=== PATIENT | female | born 1965 | race Caucasian/White ===

== ENCOUNTER 2017-12-17 11:37 | Emergency (ER) | payer BC ==
[2017-12-17] MEDS ORDERED: METOCLOPRAMIDE 10 MG/2 ML VIAL IVP ONE (12:18)
[2017-12-17] MEDS ORDERED: NS 1,000 ML IV ONE (12:18)
[2017-12-17] MEDS ORDERED: KETOROLAC 30 MG/1 ML SDV IVP ONE (12:18)
--- NOTE | 2017-12-17 12:22 | EDPHY ---
HPI/HX/ROS/PE/MDM Narrative: CHIEF COMPLAINT: Headache HPI: The patient is a 52 y/o female with a history of diabetes type I arriving with her friend complaining of a persistent headache for the last 5 days. She is visiting from [place] and arrived in [place] one week ago. Over the weekend she developed a constant right periorbital headache with sensation of a "throbbing spike" going through the top of her head. Her pain is associated with nausea and one episode of vomiting. She has never had a headache like this and has only had one migraine previously. She notes her BGL has been elevated as high as 300 since arriving in [place], but has been improving over the last couple days. On Thursday, she noticed a slight change in her vision that she describes feeling like her right eye needs to "catch up with the left, like almost double vision for a split second but it corrects itself." She has had mild episodes of diplopia remotely while hypoglycemic. She has been using Tylenol Migraine with no alleviation. She also feels dehydrated. She denies recent illness, recent trauma, urinary symptoms, cough, abdominal pain, diarrhea , fever, chest pain, dyspnea. REVIEW OF SYSTEMS: Aside from elements discussed in the HPI, a comprehensive 10-point review of systems was reviewed and is negative. 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 PHYSICAL EXAM: General:Patient is alert, in no acute distress. BP 181/105 ENT:Eyes are normal to inspection. EOMI. CORRY. ENT inspection normal. Neck: Normal inspection. Full range of motion. Respiratory:No respiratory distress. Breath sounds normal bilaterally. Cardiovascular: Regular rate and rhythm. Strong peripheral pulses. Normal cap refill. Abdomen:The abdomen is nontender to palpation. There are no peritoneal signs. There are normal bowel sounds. Back: Normal to inspection. No tenderness to palpation. Skin: Normal color. No rash. Warm and dry. Extremities: Normal appearance. Full range of motion. Neuro: Oriented x3. Normal motor function. Normal sensory function. No pronator drift. Normal [id number]. Face symmetric. ED Course: This is a 52 y/o female with type I diabetes who presents with a 5-day history of persistent headache, nausea, and what she describes as momentary diplopia when moving her eyes. She does not have a history of migraines or frequent headaches. Her neuro exam is normal. Presentation seems consistent with migraine , but due to severity of symptoms and visual symptoms, plan for head CT and symptom management. IV established and basic labs ordered. 30mg IV Toradol, 25mg IV Benadryl, 10mg IV Reglan, 1L IV NS ordered. Head CT: small pituitary adenoma. Reassessed patient and discussed results. Exam remains unchanged. Brain MRI ordered. 1315: 0.5mg IV Dilaudid administered for pain. MDM: This patient presents with new severe unilateral headache and description of very minor transient diplopia. Given lack of similar symptoms in past and severity of current symptoms, a CTH was performed which is positive for a pituitary adenoma. MRI ordered to evaluate this as well as her report of diplopia, and this confirms adenoma which does not appear to be actively causing her symptoms, as well as white matter lesions suspicious for MS. I informed the patient of these results and spoke to her (who is a physician ) via telephone. The patient's symptoms are greatly improved and she feels comfortable being discharged. We discussed strict return precautions and need for close follow-up. - Data Points Imaging Results: Imaging Impressions Head CT 12/17/17 12:19 Impression: Pituitary enlargement. Pituitary MRI is recommended for further evaluation. Findings discussed with Dr. Riley Woo on December 17, 2017 at 1306 hours. Imaging: Discussed imaging studies w/ director athletic Radiologist, I viewed and interpreted images myself Laboratory Results: Laboratory Results 12/17/17 12:05 12/17/17 12:05 12/17/17 12/17/17 12:05 12:05 WBC 8.18 10^3/uL 10^3/uL (3.80-9.50) RBC 4.64 10^6/uL 10^6/uL (4.18-5.33) Hgb 13.5 g/dL g/dL (12.6-16.3) Hct 40.9 % % (38.0-47.0) MCV 88.1 fL fL (81.5-99.8) MCH 29.1 pg pg (27.9-34.1) MCHC 33.0 g/dL g/dL (32.4-36.7) RDW 13.1 % % (11.5-15.2) Plt Count 389 10^3/uL 10^3/uL (150-400) MPV 10.6 fL fL (8.7-11.7) Neut % (Auto) 73.6 % % (39.3-74.2) Lymph % (Auto) 15.8 % % (15.0-45.0) [place] % (Auto) 6.6 % % (4.5-13.0) Eos % (Auto) 1.7 % % (0.6-7.6) Baso % (Auto) 2.1 % H % (0.3-1.7) Nucleat RBC Rel Count 0.0 % % (0.0-0.2) Absolute Neuts (auto) 6.02 10^3/uL 10^3/uL (1.70-6.50) Absolute Lymphs (auto) 1.29 10^3/uL 10^3/uL (1.00-3.00) Absolute Monos (auto) 0.54 10^3/uL 10^3/uL (0.30-0.80) Absolute Eos (auto) 0.14 10^3/uL 10^3/uL (0.03-0.40) Absolute Basos (auto) 0.17 10^3/uL H 10^3/uL (0.02-0.10) Absolute Nucleated RBC 0.00 10^3/uL 10^3/uL (0-0.01) Immature Gran % 0.2 % % (0.0-1.1) Immature Gran # 0.02 10^3/uL 10^3/uL (0.00-0.10) Sodium 139 mEq/L mEq/L (135-145) Potassium 4.3 mEq/L mEq/L (3.5-5.2) Chloride 100 mEq/L mEq/L (97-110) Carbon Dioxide 29 mEq/l mEq/l (22-31) Anion Gap 10 mEq/L mEq/L (8-16) BUN 11 mg/dL mg/dL (7-23) Creatinine 0.8 mg/dL mg/dL (0.6-1.0) Estimated GFR > 60 Glucose 188 mg/dL H mg/dL (70-100) Calcium 9.3 mg/dL mg/dL (8.5-10.4) Medications Given: Discontinued Medications Diphenhydramine HCl (Benadryl Injection) 25 mg IVP EDNOW ONE Stop: 12/17/17 12:19 Last Admin: 12/17/17 12:27 Dose: 25 mg Hydromorphone HCl (Dilaudid) 0.5 mg IVP EDNOW ONE Stop: 12/17/17 13:17 Last Admin: 12/17/17 13:40 Dose: 0.5 mg Sodium Chloride (Ns) 1,000 mls @ 0 mls/hr IV ONCE ONE; Wide Open PRN Reason: Protocol Stop: 12/17/17 12:19 Last Admin: 12/17/17 12:28 Dose: 1,000 mls Ketorolac Tromethamine (Toradol) 30 mg IVP EDNOW ONE Stop: 12/17/17 12:19 Last Admin: 12/17/17 12:28 Dose: 30 mg Metoclopramide HCl (Reglan Injection) 10 mg IVP EDNOW ONE Stop: 12/17/17 12:19 Last Admin: 12/17/17 12:28 Dose: 10 mg General Time Seen by Provider: 12/17/17 11:58 Initial Vital Signs: Initial Vital Signs Temperature (C) 36.7 C 12/17/17 11:43 Heart Rate 80 12/17/17 11:43 Respiratory Rate 16 12/17/17 11:43 Blood Pressure 171/94 H 12/17/17 11:43 O2 Sat (%) 95 12/17/17 11:43 O2 Delivery Mode Room Air Allergies/Adverse Reactions: No Known Allergies Allergy (Unverified 12/17/17 11:42) Home Medications: Medication Instructions Recorded Aspirin 12/17/17 Atorvastatin Calcium 12/17/17 LaMICtal 12/17/17 buPROPion 12/17/17 novoLOG 12/17/17 Departure - Departure Disposition: Home, Routine, Self-Care Clinical Impression: Headache, Pituitary adenoma Condition: Good Instructions: Acute Headache (ED) Additional Instructions: 1. Use Excedrin as directed on the packaging as needed for headache over the next few days. 2. Follow up with neurosurgery in the next week. You've been referred to Dr. Thompson locally if needed. I recommend calling today to schedule this appointment. 3. Return to the ED for severe pain, weakness or numbness on one side of your body, vision changes, fever, or other worsening of condition. Referrals: HUBER CHAPPELL [Other] - As per Instructions Jesse Thompson MD [Medical Doctor] - As per Instructions Report Scribed for: Riley Woo Report Scribed by: Sabina Ramirez Date of Report: 12/17/17 Time of Report: 12:22 Physician Review and Approval Statement: Portions of this note were transcribed by an ED scribe. I personally performed the history, physical exam, and medical decision making; and confirm the accuracy of the information in the transcribed note.
[2017-12-17 12:26] LABS: PLATELET COUNT 389 10^3/uL (150-400)
[2017-12-17] MEDS ORDERED: HYDROmorphONE/DILAUDID 2 MG/ML INJ IVP ONE (13:16)
[2017-12-17 13:51] VITALS: TEMP 98.6
[2017-12-17] MEDS ORDERED: GADOBUTROL 10 ML VIAL IVP ONE (13:59)
[2017-12-17 15:54] VITALS: BP 177/97; PULSE 77; RESP 18; O2SAT 97
== END 2017-12-17 15:54 | disposition home or self-care (01) ==
DX: R51 Headache (principal); D35.2 Benign neoplasm of pituitary gland; E10.9 Type 1 diabetes mellitus without complications; E86.9 Volume depletion, unspecified; Z79.82 Long term (current) use of aspirin
CPT/HCPCS: 96374; A9585; J1170; J1200; J1885; J2765